=== PATIENT | female | born 1945 | race Caucasian/White ===

== ENCOUNTER 2016-11-07 01:21 | Emergency (ER) | payer MEDICARE, OTHER ==
[2016-11-07 01:40] LABS: BASOPHIL 0.2 % (0-2); EOSINOPHIL 2.2 % (0-7); HCT 43.1 % (37.0-47.0); HGB 14.7 g/dl (12.5-16.0); LYMPHOCYTE 34.4 % (15-48); MCH 30.6 pg (25.0-31.0); MCHC 34.1 g/dL (32.0-36.0); MCV 89.8 fL (78.0-100.0); MONOCYTE 12.7 % (0-12); MPV 9.4 fL (6.0-9.5); NEUTROPHIL 50.5 % (41-80); PLT 273 K/uL (150-400); RDW 13.4 % (11.5-14.0); WBC 8.7 K/uL (4.0-10.5)
[2016-11-07 01:49] LABS: INR 1.11 (0.9-1.2); PROTHROMBIN TIME 13.4 SECONDS (11.4-13.2); PTT 27.8 SECONDS (24.3-32.1)
[2016-11-07 01:59] LABS: ALBUMIN 3.8 g/dL (3.4-4.8); BILIRUBIN - TOTAL 0.4 mg/dL (0.1-1.0); CREATININE 0.7 mg/dL (0.5-1.0); GLOBULIN (CALCULATION) 4.2 g/dL (2.2-4.2); POTASSIUM 3.1 mmol/L (3.5-5.1)
== END 2016-11-07 03:32 | disposition home or self-care (01) ==
LOC: FER 01:21
PROVIDERS: Internal Medicine
DX: I48.91 Unspecified atrial fibrillation (principal); K21.9 Gastro-esophageal reflux disease without esophagitis; Z88.0 Allergy status to penicillin; Z88.1 Allergy status to other antibiotic agents; Z79.899 Other long term (current) drug therapy; Z79.82 Long term (current) use of aspirin; Z90.49 Acquired absence of other specified parts of digestive tract
CPT/HCPCS: 36415; 71010; 80053; 83735; 84443; 85025; 85610; 85730; 93005; C9113

== ENCOUNTER 2020-04-17 13:54 | Emergency (ER) | payer OTHER ==
[~2020-04-17 13:54] MED LIST: ASPIRIN CHEWABL81 MG PO; ASPIRIN EC81 M1 PO; CENTRUM SILVER1 EAC4 PO; CITRACAL SOFT1 EACH PO; LOPRESSOR50 MG PO; METAMUCIL1 DOSE PO; NEXIUM40 MG PO; PROTONIX 40MG T40 MG PO
[2020-04-17 14:43] LABS: BASOPHIL 0.5 % (0-2); HCT 42.4 % (37.0-47.0); HGB 13.7 g/dl (12.5-16.0); LYMPHOCYTE 23.3 % (15-48); MCH 30.6 pg (25.0-31.0); MCHC 32.3 g/dL (32.0-36.0); MCV 94.9 fL (78.0-100.0); MONOCYTE 13.6 % (0-12); MPV 9.5 fL (6.0-9.5); NEUTROPHIL 60.3 % (41-80); NRBC 0; PLT 256 K/uL (150-400); RBC 4.47 M/uL (4.20-5.40); WBC 6.4 K/uL (4.0-10.5)
[2020-04-17 15:04] LABS: ALBUMIN 3.3 g/dL (3.4-5.0); BILIRUBIN - TOTAL 0.5 mg/dL (0.2-1.0); BUN/CREAT RATIO (CALC) 25.5 RATIO; CREATININE 0.55 mg/dL (0.51-0.95); GLOBULIN (CALCULATION) 4.1 g/dL; TOTAL PROTEIN 7.4 g/dL (6.4-8.2)
[2020-04-17 17:02] LABS: BILIRUBIN NEGATIVE (NEGATIVE); BLOOD TRACE-INTACT Ery/uL (NEGATIVE); CLARITY CLEAR (CLEAR); COLOR YELLOW (YELLOW); GLUCOSE (U) NORMAL (NORMAL); LEUKOCYTES NEGATIVE Leu/uL (NEGATIVE); NITRITE NEGATIVE (NEGATIVE); PROTEIN NEGATIVE (NEGATIVE); SPECIFIC GRAVITY 1.015 (1.001-1.030); UROBILINOGEN 0.2 mg/dL (0.2-1.0)
[2020-04-17 17:08] LABS: BACTERIA TRACE; URINARY RBC RARE; URINARY WBC RARE
[2020-04-17 19:33] LABS: LACTIC ACID 0.3 mmol/L (0.4-1.9)
== END 2020-04-17 20:03 | disposition home or self-care (01) ==
LOC: FER 13:54
PROVIDERS: Emergency Medicine; Nurse Practitioner Family
DX: K62.5 Hemorrhage of anus and rectum (principal); R10.84 Generalized abdominal pain; R19.7 Diarrhea, unspecified; I10 Essential (primary) hypertension; I48.91 Unspecified atrial fibrillation; Z87.19 Personal history of other diseases of the digestive system; Z90.49 Acquired absence of other specified parts of digestive tract; Z88.0 Allergy status to penicillin; Z88.1 Allergy status to other antibiotic agents; Z79.899 Other long term (current) drug therapy
CPT/HCPCS: 36415; 80053; 81001; 83605; 83690; 85025; 86850; 86900; 86901; J7030; Q9967

== ENCOUNTER 2020-09-25 02:50 | Emergency (ER) | payer OTHER ==
[2020-09-25 03:37] LABS: BASOPHIL 0.6 % (0-2); EOSINOPHIL 3.4 % (0-7); HCT 42.5 % (37.0-47.0); HGB 13.7 g/dl (12.5-16.0); LYMPHOCYTE 27.6 % (15-48); MCH 29.1 pg (25.0-31.0); MCHC 32.2 g/dL (32.0-36.0); MCV 90.4 fL (78.0-100.0); MONOCYTE 13.5 % (0-12); MPV 9.6 fL (6.0-9.5); NEUTROPHIL 54.6 % (41-80); NRBC 0; PLT 279 K/uL (150-400); RDW 13.9 % (11.5-14.0); WBC 6.5 K/uL (4.0-10.5)
[2020-09-25 04:10] LABS: BUN/CREAT RATIO (CALC) 22.8 RATIO; CREATININE 0.57 mg/dL (0.51-0.95); FT4 (FREE T4) 1.1 ng/dL (0.76-1.46); MAGNESIUM 1.8 mg/dL (1.8-2.4); POTASSIUM 3.7 mmol/L (3.5-5.1)
== END 2020-09-25 04:51 | disposition home or self-care (01) ==
LOC: FER 02:50
PROVIDERS: Emergency Medicine Emergency Medical Services
DX: R00.2 Palpitations (principal); Z86.79 Personal history of other diseases of the circulatory system; Z79.82 Long term (current) use of aspirin; Z79.899 Other long term (current) drug therapy; Z88.0 Allergy status to penicillin; Z88.1 Allergy status to other antibiotic agents
CPT/HCPCS: 36415; 71045; 80048; 83735; 84439; 84443; 84484; 85025; 93005

== ENCOUNTER 2020-12-01 06:05 | Emergency (ER) | payer OTHER ==
[2020-12-01 06:44] LABS: BASOPHIL 0.5 % (0-2); EOSINOPHIL 1.8 % (0-7); HCT 41.7 % (37.0-47.0); HGB 13.5 g/dl (12.5-16.0); LYMPHOCYTE 20.1 % (15-48); MCH 29.9 pg (25.0-31.0); MCHC 32.4 g/dL (32.0-36.0); MCV 92.3 fL (78.0-100.0); MONOCYTE 11.5 % (0-12); MPV 9.4 fL (6.0-9.5); NEUTROPHIL 65.9 % (41-80); NRBC 0; PLT 272 K/uL (150-400); RBC 4.52 M/uL (4.20-5.40); RDW 13.3 % (11.5-14.0); WBC 6.3 K/uL (4.0-10.5)
[2020-12-01 07:21] LABS: ALBUMIN 3.4 g/dL (3.4-5.0); BILIRUBIN - TOTAL 0.6 mg/dL (0.2-1.0); BUN/CREAT RATIO (CALC) 19.6 RATIO; CREATININE 0.51 mg/dL (0.51-0.95); FT4 (FREE T4) 1.1 ng/dL (0.76-1.46); GLOBULIN (CALCULATION) 4.5 g/dL; MAGNESIUM 2.1 mg/dL (1.8-2.4); POTASSIUM 3.8 mmol/L (3.5-5.1); TOTAL PROTEIN 7.9 g/dL (6.4-8.2)
== END 2020-12-01 08:23 | disposition home or self-care (01) ==
LOC: FER 06:05
PROVIDERS: Emergency Medicine Emergency Medical Services
DX: R00.2 Palpitations (principal); K21.9 Gastro-esophageal reflux disease without esophagitis; Z90.49 Acquired absence of other specified parts of digestive tract; Z79.82 Long term (current) use of aspirin; Z88.0 Allergy status to penicillin; Z88.1 Allergy status to other antibiotic agents
CPT/HCPCS: 36415; 71045; 80053; 83735; 84439; 84443; 85025; 93005

== ENCOUNTER 2021-02-19 19:18 | Emergency (ER) | payer OTHER ==
[2021-02-19 19:59] LABS: BASOPHIL 1.1 % (0-2); EOSINOPHIL 3.2 % (0-7); HCT 39.6 % (37.0-47.0); HGB 12.8 g/dl (12.5-16.0); LYMPHOCYTE 30.3 % (15-48); MCH 29.4 pg (25.0-31.0); MCHC 32.3 g/dL (32.0-36.0); MONOCYTE 14.1 % (0-12); MPV 9.5 fL (6.0-9.5); NEUTROPHIL 51.1 % (41-80); NRBC 0; PLT 257 K/uL (150-400); RBC 4.35 M/uL (4.20-5.40); RDW 13.2 % (11.5-14.0); WBC 6.6 K/uL (4.0-10.5)
[2021-02-19 20:12] LABS: BUN/CREAT RATIO (CALC) 22.6 RATIO; C-REACTIVE PROTEIN 0.5 mg/dL (<=0.90); CREATININE 0.62 mg/dL (0.51-0.95); POTASSIUM 3.5 mmol/L (3.5-5.1)
[2021-02-19] MEDS ORDERED: SUDAFED 12 HOU120 MG PO (21:09)
[2021-02-19] MEDS ORDERED: ANTIVERT12.5 MG PO (21:09)
[2021-02-19 21:12] LABS: BILIRUBIN NEGATIVE (NEGATIVE); BLOOD TRACE-INTACT Ery/uL (NEGATIVE); CLARITY CLEAR (CLEAR); COLOR YELLOW (YELLOW); GLUCOSE (U) NORMAL (NORMAL); LEUKOCYTES NEGATIVE Leu/uL (NEGATIVE); NITRITE NEGATIVE (NEGATIVE); PROTEIN NEGATIVE (NEGATIVE); UROBILINOGEN 0.2 mg/dL (0.2-1.0)
[2021-02-19 21:18] LABS: URINARY RBC RARE
== END 2021-02-19 21:25 | disposition home or self-care (01) ==
LOC: FER 19:18
PROVIDERS: Emergency Medicine Emergency Medical Services
DX: R42 Dizziness and giddiness (principal); I48.91 Unspecified atrial fibrillation; Z88.1 Allergy status to other antibiotic agents; Z88.0 Allergy status to penicillin; Z79.82 Long term (current) use of aspirin
CPT/HCPCS: 36415; 70450; 71045; 80048; 81001; 84484; 85025; 86140; 93005; J7030

== ENCOUNTER 2021-07-29 22:04 | Emergency (ER) | payer OTHER ==
[~2021-07-29 22:04] MED LIST changes: +ANTIVERT12.5 MG PO; +SUDAFED 12 HOU120 MG PO
[2021-07-29 23:57] LABS: BILIRUBIN NEGATIVE (NEGATIVE); BLOOD TRACE-INTACT Ery/uL (NEGATIVE); CLARITY CLEAR (CLEAR); COLOR YELLOW (YELLOW); GLUCOSE (U) NORMAL (NORMAL); LEUKOCYTES 1+ Leu/uL (NEGATIVE); NITRITE NEGATIVE (NEGATIVE); PROTEIN NEGATIVE (NEGATIVE); SPECIFIC GRAVITY <=1.005 (1.001-1.030); UROBILINOGEN 0.2 mg/dL (0.2-1.0)
[2021-07-30 00:06] LABS: BASOPHIL 0.1 % (0-2); EOSINOPHIL 1.7 % (0-7); HCT 38.5 % (37.0-47.0); HGB 12.7 g/dl (12.5-16.0); LYMPHOCYTE 2.9 % (15-48); MCH 30.4 pg (25.0-31.0); MCV 92.1 fL (78.0-100.0); MONOCYTE 8.6 % (0-12); MPV 9.3 fL (6.0-9.5); NEUTROPHIL 86.5 % (41-80); NRBC 0; PLT 212 K/uL (150-400); RBC 4.18 M/uL (4.20-5.40); RDW 13.3 % (11.5-14.0); WBC 8.4 K/uL (4.0-10.5)
[2021-07-30 00:07] LABS: BACTERIA TRACE; SQUAMOUS EPITHELIAL CELLS RARE
[2021-07-30 00:35] LABS: ALBUMIN 3.3 g/dL (3.4-5.0); BILIRUBIN - TOTAL 0.7 mg/dL (0.2-1.0); BUN/CREAT RATIO (CALC) 21.8 RATIO; CREATININE 0.55 mg/dL (0.51-0.95); GLOBULIN (CALCULATION) 3.7 g/dL; POTASSIUM 3.7 mmol/L (3.5-5.1)
[2021-07-30] MEDS ORDERED: ONDANSETRON ODT4 MG PO (01:15)
== END 2021-07-30 01:22 | disposition home or self-care (01) ==
LOC: FER 22:04
PROVIDERS: Internal Medicine
DX: R50.9 Fever, unspecified (principal); R30.0 Dysuria; R11.0 Nausea; I48.91 Unspecified atrial fibrillation; Z88.0 Allergy status to penicillin; Z88.1 Allergy status to other antibiotic agents; Z88.8 Allergy status to other drugs, medicaments and biological substances; Z79.899 Other long term (current) drug therapy
CPT/HCPCS: 36415; 80053; 81001; 85025; 87088; 99284